=== PATIENT | female | born 1995 | race Caucasian/White ===

== ENCOUNTER 2024-03-03 09:42 | Outpatient (CLI) | payer BC, SELFPAY ==
[2024-03-03 10:10] LABS: Basophils % 0.2 % (0.1-2.0); Eosinophils # 0.1 K/mm3 (0.0-0.4); Eosinophils % 1.7 % (0.1-12.0); Hematocrit 35.6 % (37.0-47.0); Lymphocytes # 1.2 K/mm3 (0.7-4.5); Mean Corpuscular HGB Conc 33.7 g/dL (31.8-35.4); Mean Corpuscular Hemoglobin 29.2 pg (27.0-31.2); Mean Corpuscular Volume 86.6 fl (81-99); Mean Platelet Volume 10.2 fl (7.4-10.4); Monocytes # 0.3 K/mm3 (0.1-1.0); Monocytes % 4.5 % (1.7-9.3); Neutrophils # 4.8 K/mm3 (1.8-7.8); Neutrophils % 74.3 % (37.0-80.0); Platelet Count 205 K/mm3 (142-424); Red Blood Count 4.11 M/mm3 (4.20-5.40); Red Cell Distribution Width 11.9 % (11.5-17.5); White Blood Count 6.5 K/mm3 (4.8-10.8)
[2024-03-03 11:16] LABS: HIV Combo NEGATIVE (Negative)
[2024-03-03 14:43] LABS: RPR W/RFX Titers Nonreactive (Nonreactive)
[2024-03-04 06:10] LABS: HCV Ab Non Reactive (Non Reactive); Hepatitis B Surface Antigen Negative (Negative)
== END 2024-03-03 23:59 | disposition home or self-care (01) ==
LOC: LAB 09:42
PROVIDERS: Visit Provider Obstetrics & Gynecology
DX: Z34.91 Encounter for supervision of normal pregnancy, unspecified, first trimester (principal); Z3A.11 11 weeks gestation of pregnancy
CPT/HCPCS: 36415; 85025; 86592; 86762; 86803; 86850; 87340; 87389

== ENCOUNTER 2024-04-28 09:29 | Outpatient (CLI) | payer BC, SELFPAY ==
--- NOTE | 2024-04-28 09:30 | US_ITS ---
PROCEDURE: US OB /MATERNAL DETAIL CLINICAL INDICATION: 20 week Anatomy Scan-US OB Complete COMPARISON: No exams were available for comparison FINDINGS: Transabdominal sonographic images of the pelvis were obtained. From her established due date she is 19 weeks 2 days. Single viable intrauterine gestation. Cephalic position. Placenta: Right laterally wrappedplacenta grade 1. There is an average amount of fluid. The cervix appears satisfactory. Closed and measuring 3.21 cm in length. Complete survey performed and was unremarkable on the submitted images as in PACS. No discrete anomalies identified on survey imaging by technologist. Active fetus. Three-vessel cord with satisfactory umbilical cord insertion. 4- chamber heart noted. Situs, aortic arch, LVOT, RVOT, three-vessel view appear normal. There is a 2.3 mm intracardiac echogenic foci in the left ventricle. Survey of brain & ventricles Unremarkable. Cerebellum, thalamus, choroid plexus, cisterna magna appear normal. Face and neck survey unremarkable. Profile, nasion, lips and nose appeared normal. Diaphragm and chest views unremarkable. Abdomen: Both kidneys noted and unremarkable. Stomach and bladder noted and satisfactory. Spine: Survey of the spine satisfactory with no anomalies identified nor imaged. Cervical, thoracic, lower spine appear normal. Both arms and legs noted. Amniotic Fluid: Adequate. MVP 4.95 cm Measurements: Average ultrasound age 20weeks 4days. Estimated due date by ultrasound age 0709/11/2024. Estimated weight 348g BPD = 20weeks 6days HC = 20weeks 2days AC = 20weeks 6days FL = 20weeks 0 days Growth Percentile= 94 Heart Rate = 140bpm Cerebellum = 19weeks 4days Humerus = 20weeks 2days HC/AC is 1.14 FL/BPD is 0.65 FL/AC is 0.2 IMPRESSION: 1. Viable fetus in the cephalic presentation with a right laterally wrapped placenta grade 1. 2. The fluid is within normal limits with an MVP 4.95 cm. 3. There is an intracardiac echogenic foci within the left ventricle measuring 2.3 mm. Suggest follow-up at 28 weeks. 4. The rest of the anatomic scan appears normal. 5. The fetus measures approximately 1 week ahead on all biometry. Dictated by: Kevin Martinez MD 04/29/2024 08:40 Kevin Martinez MD in [facility] 04/29/2024 08:40
== END 2024-04-28 23:59 | disposition home or self-care (01) ==
LOC: RAD 09:30
PROVIDERS: PCP Obstetrics & Gynecology; Visit Provider Obstetrics & Gynecology
DX: Z36.3 Encounter for antenatal screening for malformations (principal); Z3A.19 19 weeks gestation of pregnancy
CPT/HCPCS: 76811

== ENCOUNTER 2024-06-28 09:22 | Outpatient (CLI) | payer BC, SELFPAY ==
--- NOTE | 2024-06-28 09:30 | US_ITS ---
PROCEDURE: US OB FOLLOW UP CLINICAL INDICATION: f/u Growth at 28 wks for IEF -left ventricle COMPARISON: US US OB /MATERNAL DETAIL from 04/28/2024 FINDINGS: Transabdominal sonographic images of the pelvis were obtained. The following parameters are obtained: From her established due date she is 28weeks 3days Viable fetus in the cephalic presentation with a right lateral placenta grade 2. The cervix measures 3.46 cm Estimated weight 1404 grams, 3 lb 2 oz AUA 30 weeks 0 days, heart rate: 147bpm bpm. BPD: 30weeks 5days, 94 percentile HC: 30weeks 1day, 70 percentile AC: 29weeks 4days, 74 percentile FL: 29weeks 2days, 57 percentile HC/AC: 1.09 FL/BPD: 0.72 FL/AC: 0.22 Growth percentile: 78th percentile Amniotic fluid index: 10.48cm, MVP 3.48 cm No obvious anomalies evident. profile seen, stomach, bladder, kidneys, three-vessel cord, four chamber heart appear normal. There continues to be a small left ventricular intracardiac echogenic foci. IMPRESSION: 1. Viable fetus in the cephalic presentation with a right lateral placenta grade 2. 2. The fluid is within normal limits with an amniotic fluid index 10.48 cm, MVP 3.48 cm. 3. There has been good interval growth with the fetus currently 78th percentile. 4. There continues to be a small left ventricular intracardiac echogenic foci. It does not appear to have increased in size. Suggest repeat scan at 36 weeks. 5. The rest of the limited anatomical scan appears normal. Dictated by: Kevin Martinez MD 06/28/2024 10:13 Kevin Martinez MD in [facility] 06/28/2024 10:13
== END 2024-06-28 23:59 | disposition home or self-care (01) ==
LOC: RAD 09:23
PROVIDERS: PCP Obstetrics & Gynecology; Visit Provider Obstetrics & Gynecology
DX: Z3A.28 28 weeks gestation of pregnancy (principal); Z36.2 Encounter for other antenatal screening follow-up; O28.3 Abnormal ultrasonic finding on antenatal screening of mother
CPT/HCPCS: 76816

== ENCOUNTER 2024-06-29 16:49 | Outpatient (CLI) | payer BC, SELFPAY ==
[2024-06-29 18:22] LABS: Basophils % 0.2 % (0.1-2.0); Eosinophils # 0.1 Kmm3 (0.0-0.4); Eosinophils % 1.1 % (0.1-12.0); Lymphocytes # 1.6 K/mm3 (0.7-4.5); Lymphocytes % 19.3 % (10-50); Mean Corpuscular HGB Conc 33.3 g/dL (31.8-35.4); Mean Corpuscular Hemoglobin 30.2 pg (27.0-31.2); Mean Corpuscular Volume 90.6 fl (81-99); Mean Platelet Volume 11.1 fl (7.4-10.4); Monocytes # 0.6 K/mm3 (0.1-1.0); Monocytes % 7.1 % (1.7-9.3); Neutrophils # 5.8 K/mm3 (1.8-7.8); Neutrophils % 71.4 % (37.0-80.0); Nucleated Red Blood Cells # 0 10^3/uL; Nucleated Red Blood Cells % 0 %; Platelet Count 200 K/mm3 (142-424); Red Blood Count 3.31 M/mm3 (4.20-5.40); Red Cell Distribution Width 12.2 % (11.5-17.5); Red Cell Distribution Width-SD 39.8 fL; White Blood Count 8.1 K/mm3 (4.8-10.8)
[2024-06-29 18:35] LABS: Glucose 1 Hour 116 mg/dL (74-100)
[2024-06-30 06:52] LABS: RPR W/RFX Titers Nonreactive (Nonreactive)
== END 2024-06-29 23:59 | disposition home or self-care (01) ==
LOC: LAB 16:50
PROVIDERS: Visit Provider Obstetrics & Gynecology
DX: Z34.82 Encounter for supervision of other normal pregnancy, second trimester (principal); Z3A.28 28 weeks gestation of pregnancy
CPT/HCPCS: 36415; 82947; 85025; 86592

== ENCOUNTER 2024-08-08 10:08 | Outpatient (CLI) | payer BC, SELFPAY ==
--- NOTE | 2024-08-08 10:15 | US_ITS ---
PROCEDURE: US OB BIOPHYSICAL PROFILE CLINICAL INDICATION: LGA COMPARISON: US US OB /MATERNAL DETAIL from 04/28/2024 US US OB FOLLOW UP from 06/28/2024 FINDINGS: Transabdominal sonographic images of the uterus were obtained. From her established due date she is 34weeks 2days. The following parameters are obtained: Viable Fetus in the cephalic presentation with a right lateral placenta grade 2. Average ultrasound age is 35weeks 1day Estimated weight 2,409g, 5 lb 5 oz The cervix measures 3.0 cm in length Measurements: heart Rate = 138bpm BPD = 36weeks 0 days, 89 percentile HC = 36weeks 3days ,66 percentile AC = 33weeks 6days, 41 percentile FL = 34weeks 1day, 35 percentile HC/AC is 1.08 FL/BPD is 0.75 FL/AC is 0.22 46 percentile Amniotic fluid index: 11.73cm, MVP 3.71 cm Qualitative AFV:2 Breathing movements: 2 Gross Body Movements: 2 Tone: 2 Biophysical profile score: 8 No obvious anomalies evident.Kidneys, profile, stomach, bladder, four-chamber heart, three-vessel cord appear normal. There is mild unilateral renal pelvis dilation measuring 4.2 mm. Less than 7 mm considered normal at this gestational age. IMPRESSION: 1. Viable fetus in the cephalic presentation with a right lateral placenta grade 2. 2. The fluid is within normal limits with an amniotic fluid index 11.73 cm, MVP 3.71 cm. 3. Biophysical profile is 8/8 with good breathing movement and movement seen. 4. There has been good interval growth with the fetus currently 46 percentile. 5. Limited anatomical scan appears normal. Incidental mild unilateral renal pelvis dilation. Dictated by: Kevin Martinez MD 08/08/2024 13:37 Kevin Martinez MD in [facility] 08/08/2024 13:37
== END 2024-08-08 23:59 | disposition home or self-care (01) ==
LOC: RAD 10:09
PROVIDERS: PCP Obstetrics & Gynecology; Visit Provider Obstetrics & Gynecology
DX: O36.63X0 Maternal care for excessive fetal growth, third trimester, not applicable or unspecified (principal); Z3A.34 34 weeks gestation of pregnancy
CPT/HCPCS: 76816; 76819

== ENCOUNTER 2024-08-22 10:06 | Outpatient (CLI) | payer BC, SELFPAY ==
[2024-08-22 10:32] LABS: Basophils % 0.3 % (0.1-2.0); Eosinophils # 0.1 Kmm3 (0.0-0.4); Eosinophils % 1.1 % (0.1-12.0); Hematocrit 31.6 % (37.0-47.0); Hemoglobin 9.9 g/dL (12.2-16.2); Immature Granulocytes # 0.06 10^3uL; Immature Granulocytes % 0.9 %; Lymphocytes # 1.1 K/mm3 (0.7-4.5); Lymphocytes % 16.7 % (10-50); Mean Corpuscular HGB Conc 31.3 g/dL (31.8-35.4); Mean Corpuscular Hemoglobin 28.2 pg (27.0-31.2); Mean Platelet Volume 11.3 fl (7.4-10.4); Monocytes # 0.5 K/mm3 (0.1-1.0); Monocytes % 7.6 % (1.7-9.3); Neutrophils # 4.8 K/mm3 (1.8-7.8); Neutrophils % 73.4 % (37.0-80.0); Nucleated Red Blood Cells # 0 10^3/uL; Nucleated Red Blood Cells % 0 %; Platelet Count 152 K/mm3 (142-424); Red Blood Count 3.51 M/mm3 (4.20-5.40); Red Cell Distribution Width 13.1 % (11.5-17.5); White Blood Count 6.6 K/mm3 (4.8-10.8)
[2024-08-22 11:50] LABS: Ferritin 6.15 ng/ml (6.24-137)
[2024-08-22 13:22] LABS: Vitamin B12 233 pg/mL (239-931)
== END 2024-08-22 23:59 | disposition home or self-care (01) ==
PROVIDERS: PCP Internal Medicine; Visit Provider Obstetrics & Gynecology
DX: D64.9 Anemia, unspecified (principal); Z34.03 Encounter for supervision of normal first pregnancy, third trimester; Z3A.00 Weeks of gestation of pregnancy not specified
CPT/HCPCS: 36415; 82607; 82728; 82746; 85025; 86403

== ENCOUNTER 2024-09-09 13:05 | Inpatient (IN) | payer BC, SELFPAY ==
[2024-09-09 13:12] VITALS: BMI 26.8
[2024-09-09 14:08] LABS: Hematocrit 33.1 % (37.0-47.0); Hemoglobin 10.8 g/dL (12.2-16.2); Immature Granulocytes % 0.6 %; Mean Corpuscular HGB Conc 32.6 g/dL (31.8-35.4); Mean Corpuscular Hemoglobin 28.7 pg (27.0-31.2); Mean Corpuscular Volume 88.0 fl (81-99); Nucleated Red Blood Cells % 0 %; Platelet Count 163 K/mm3 (142-424); Red Blood Count 3.76 M/mm3 (4.20-5.40); Red Cell Distribution Width-SD 43.3 fL; White Blood Count 7.1 K/mm3 (4.8-10.8)
[2024-09-09] MEDS: ALUMINUM/MAGNESIUM/SIMETHICONE 30ML UDC 30 ML PO ×2 (14:15→20:43)
[2024-09-09 14:24] VITALS: BP 121/72; PULSE 94; RESP 18; TEMP 37.2; O2SAT 96; BMI 26.8
--- NOTE | 2024-09-09 15:08 | EXP.HP ---
History of Present Illness *Admission Date: 09/09/24 *Reason for visit:: induction *History of present illness: Dian Cates is a pleasant 29-year-old G1, P0 who presented today for induction of labor. She has an SANGEETHA of 09/17/2024 giving her a gestational age of 38 weeks and 6 days today. These based on 7-week ultrasound. Following cervical exam she had spontaneous rupture of membranes. The plan was to place a [place] balloon but the patient was already contract with SROM decision was made to monitor her. She endorsed good movement and states that she is feeling contractions every 2 to 3 minutes. has been uncomplicated. 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 O+, antibody negative, rubella immune, hepatitis B negative, hepatitis C negative, RPR negative, HIV negative 1 hour GTT: 116 GBS negative PFSH PFS Disclaimer: The information contained in this section may have been updated after the patient was seen, as this information can be updated by other users. Medical History Encounter for supervision of other normal , third trimester No significant past medical history Surgical History No significant past surgical history Family History Other No significant family history Social History Smoking Status: Never smoker alcohol intake: former current occupational status: employed Travel in the last 8 weeks?: None Have you lived/traveled outside US in past 30 days?: No Contact w/someone who lives/traveled outside US past 30 days?: No Exposure to someone with infectious disease in past 14 days?: No Do you have a fever (greater than 100.4 F or 38 C)?: No Have you tested positive for COVID-19?: No Exposed to someone with COVID-19 in past 14 days?: No Do you have a sore throat?: No Do you have a cough?: No Do you have any weakness?: No Do you have any diarrhea?: No Are you experiencing any unusual bleeding?: No Do you have any muscle aches/pain?: No Do you have any abdominal pain?: No Are you experiencing loss of taste or smell?: No Other Medical History Have you received the Flu Vaccine for this season: No Have you received the Pneumonia Vaccine: No Review of Systems Review of Systems Review of systems (narrative): Review of Systems Constitutional: Denies fever, chills, and sweats Eyes: Denies vision change/ pain Respiratory: Denies cough and shortness of breath Cardiovascular: Denies chest pain and lightheadedness Gastrointestinal: Admits abdominal pain with contractions. Denies nausea, vomiting. Genitourinary: Denies dysuria and incontinence Musculoskeletal: Denies shoulder pain and back pain Neurological: Denies change in speech or headaches Meds Home Medications and Allergies Home Medications ?Medication ?Instructions ?Recorded ?Confirmed ?Type vit no.95-ferrous 1 tab PO DAILY 08/22/24 09/09/24 History fumarate 28 mg-folic acid 800 mcg tablet () iron sucrose 200 mg iron/10 mL 200 mg (10 mL) IV WEEKLY 13 doses 08/30/24 09/09/24 Rx intravenous solution (Venofer) #30 mL New Prescriptions to Start Prescriptions: Allergies Allergy/AdvReac Type Severity Reaction Status Date / Time Sulfa (Sulfonamide Allergy Mild Rash Verified 09/05/24 08:20 Antibiotics) Exam Data for Last 24 hours Vital signs and Labs for Last 24 Hours: Temp Pulse Resp BP Pulse Ox O2 Del Method 98.9 F 94 H 18 121/72 96 Room Air 09/09/24 14:24 09/09/24 14:24 09/09/24 14:24 09/09/24 14:24 09/09/24 14:24 09/09/24 14:24 Laboratory Results - last 24 hr 09/09/24 14:00: WBC 7.1, RBC 3.76 L, Hgb 10.8 L, Hct 33.1 L, MCV 88.0, MCH 28.7, MCHC 32.6, RDW 13.7, Plt Count 163, MPV 12.5 H, Neut % (Auto) 75.9, Lymph % (Auto) 16.3, [place] % (Auto) 6.3, Eos % (Auto) 0.6, Baso % (Auto) 0.3, Neut # (Auto) 5.4, Lymph # (Auto) 1.2, [place] # (Auto) 0.5, Eos # (Auto) 0.0, Baso # (Auto) 0.0, Blood Type O Positive I & O for Last 24 hours: Intake & Output 09/06/24 09/07/24 09/08/24 09/09/24 23:59 23:59 23:59 23:59 Weight 166 lb Narrative: General: patient is alert oriented in no acute distress and responds appropriately to questions. HEENT: NCAT, EOMI, moist mucous membranes, neck supple with full ROM Cardiovascular: RRR +S1/S2, no murmurs or rubs Pulmonary: Clear to auscultation bilaterally, nonlabored breathing, symmetric chest rise Abdominal: Gravid abdomen appropriate for gestation. No guarding, rebound, or tenderness noted. Extremities: trace edema, no tenderness or cyanosis noted Skin: Normal turgor, intact, warm. Negative for erythema, pallor, petechia, or lesions Neurologic: Negative for sensory or motor deficit Psychiatric: Normal affect, normal thought process, good judgment and insight, no depression or anxious mood appreciated. *Routine HEENT Exam Head: Present normocephalic and atraumatic Eye: Present EOMI, PERRL and normal accommodation; Absent conjunctival icterus, scleral injection, nystagmus or exophthalmos ENT: Present mucous membranes moist *Routine Respiratory Exam Respiratory: Present CTA bilaterally, normal respiratory effort, able to speak in complete sentences and symmetric chest movement; Absent accessory muscle use, decreased breath sounds, rales, respiratory distress, wheezes, distant breath sounds or diminished air movement *Routine Cardiovascular Exam Cardiovascular: Present RRR, Normal S1 and Normal S2; Absent murmur or gallop *Routine Abdominal Exam Abdominal: Present soft and normoactive bowel sounds; Absent tenderness, distended, rebound or guarding *Routine Rectal Exam Rectal:: deferred *Routine Genitalia Exam Genitalia:: normal female Assessment and Plan *Assessment and plan (1) Encounter for supervision of other normal , third trimester: Status: Acute Category: Medical Code(s): Z34.83 - Encounter for supervision of other normal , third trimester (2) SROM (spontaneous rupture of membranes): Status: Acute Category: Medical Plan - Monitor vitals - Admit to L&D for labor monitoring and delivery - External FHR and TOCO monitor - Exam on admission: /-2 - GBS neg/ Blood type: O+ - Hemoglobin: 10.8, Plt: 163 - Anticipate vaginal delivery of male infant We will monitor for 2+ hours to see if she makes cervical change on her own. She is interested in attempting nipple stimulation for alternatives to induction.
[2024-09-09] MEDS: BUTORPHANOL TARTRATE 1 MG/ML VIAL IV (20:39)
[2024-09-09 22:18] LABS: Microscopic, Urine URINE MICROSCOPIC (MICROSCOPIC)
[2024-09-09 22:22] LABS: Bilirubin,Urine Negative (Negative); Color,Urine YELLOW (Yellow); Glucose,Urine (UA) TRACE (Negative); Ketones,Urine Negative (Negative); Leukocyte Esterase,Urine Negative (Negative); PH,Urine 6.5 (5.0-8.5); Protein,Urine TRACE (Negative); Specific Gravity, Urine >= 1.030 (1.005-1.030); Urobilinogen,Urine 0.2 EU/dl (0.2)
[2024-09-09 22:41] LABS: Bacteria,Urine Trace /lpf
[2024-09-09] MEDS: BUTORPHANOL TARTRATE 2 MG/ML VIAL IV (22:51)
[2024-09-10] MEDS: DEXTROSE 5%-LACTATED RINGERS 1,000 ML 125 ML IV (01:00)
--- NOTE | 2024-09-10 01:03 | P.PNANES_ITS ---
[facility] Disclaimer: The information contained in this section may have been updated after the patient was seen, as this information can be updated by other users. Medical History Encounter for supervision of other normal , third trimester No significant past medical history Surgical History No significant past surgical history Family History Other No significant family history Social History Smoking Status: Never smoker alcohol intake: former substance use type: denies use current occupational status: employed Travel in the last 8 weeks?: None [facility] Anesthesia Checklist Patient Identification Patient Identification: Verbal (Name & ) Structural Data Admitted From: Inpatient Planned Operative Procedure/s: labor epidural Consent for Planned Operative Procedure(s) Verified: Yes Airway Assessment Mallampati Score:: Class II C-Spine Mobility Assessed: Yes TMJ Mobility Assessed: Yes Dentition: Good Dentition Neurological Assessment Level of Consciousness: Awake, Alert and Appropriate Anesthesia Plan Anesthesia Risk discussed: Yes Anesthesia Plan: Verified ASA Class: II Anesthesia Type: Epidural
[2024-09-10] MEDS: ONDANSETRON 4MG/2ML VIAL 4 MG IV ×2 (01:26→12:52)
[2024-09-10] MEDS: ALUMINUM/MAGNESIUM/SIMETHICONE 30ML UDC 30 ML PO (02:36)
--- NOTE | 2024-09-10 05:19 | EXP.LABOR.NO ---
Labor Note Subjective: Date: 09/10/24 Time: 05:19 regular contraction Comment:: Reports increased pressure. States the labor shakes are just starting to improve. She feels better but still feeling abdominal pain Objective: NST:: Reactive Contractions:: every 2-3 minutes Cervical Dilation:: 8 Effacement:: 90% Station: 0 Membranes: ruptured Fetus: Monitoring?: Yes monitoring type:: External Assessment: Labor progressing?: Yes Plan: Anesthesia for epidural?: Yes Plan for ?: No Continue to monitor?: Yes Start pushing?: No
[2024-09-10 09:04] LABS: RPR W/RFX Titers Nonreactive (Nonreactive)
[2024-09-10] MEDS: OXYTOCIN/RINGERS LACTATE 30 UNITS/500 ML BAG IV (09:23)
[2024-09-10] MEDS: LACTATED RINGERS 1000ML 1,000 ML 500 ML IV ×2 (09:39)
--- NOTE | 2024-09-10 10:58 | EXP.OP.NOTE ---
Date of procedure: 09/10/24 Pre-op Diagnosis:: 1. 39 weeks 0days gestation, [place] 2. intolerance - Category 2 tracing- Prolonged deceleration 3. Arrest of Descent 4. OP presentation 5. GBS negative 6. Rh Positive Post-op Diagnosis:: 1. 39 weeks 0days gestation, [place] 2. intolerance - Category 2 tracing- Prolonged deceleration 3. Arrest of Descent 4. OP presentation 5. GBS negative 6. Rh Positive Procedure performed:: Primary Delivery Surgeon:: Yamileth Helm DO Distribution Superintendent(s):: Loretta Hilario RN HAZARDOUS MATERIAL SPECIALIST:: Carlitos Ruiz Anesthesia: epidural Estimated blood loss (mL): 600 Clinical Note:: Dian is a 29 yr old who presented yesterday for IOL. Following vaginal exam she had SROM during coates balloon placement, clear fluid. The patient contracted throughout the night. She made progress to 8cm and requested an epidural. Once completed the patient pushed for 1hr 40min, starting around 8am. During pushing her contractions were short and only intense every 10+ minutes. Pitocin was started to augment her labor. She pushed in several positions, without any descent. The infant was previously tachycardiac with some variable decelerations and without accelerations. When transitioning from knee chest to her back the had a decleration to the 60s and remained there for >5minutes. Decision was made to proceed with delivery at this time. Pt and family consented Operative findings:: 1. Live viable male infant: Norman. Weight: 7pounds 14ounces. Apgars 8 and 9 at 1 and 5 minutes respectively 2. Normal-appearing fallopian tubes and ovaries bilaterally 3. Cord pH: 7.35. base excess: -4.7 Operative note:: Medications: Due to the emergent nature of the procedure, antibiotics were not available. The circulating nurse was able to get them started as we were closing. She will receive one dose of Azithromycin and 24 hours of Ancef and Metronidazole. Summary: Procedure explained in its entirety. The patient was counseled on the risks and benefits of section including bleeding, vascular injury, infection, and injury to the surrounding structures. Hemorrhage requiring life saving blood transfusion resulting in blood born viral infection or allergic reaction was explained and the patient consented to blood transfusion. Possible need for further operative measures prolonging recovery time and hospitalization reviewed to include hysterectomy. Procedure explained in its entirety and patient had no further questions. Consented to procedure. The patient was taken back to the operating room where adequate epidural anesthesia was found to be adequate. Pneumatic compression stockings applied to lower extremities. She was placed in the dorsal supine position The patient was prepped and draped in sterile fashion. At 1001 a Pfannenstiel skin incision was made with the scalpel and taken down to the fascia. The fascia was knicked in the midline and bluntly extended laterally. The rectus muscles were in the midline, peritoneum was identified and entered bluntly. Tima O retractor was placed and the bladder was noted to be out of the operative field. The lower uterine segment was easily identified, sharply incised, and entered bluntly with the surgeon's index finger. Incision was then extended in a superior and inferior fashion by blunt separation. Membranes were ruptured revealing clear fluid. The fetus was in cephalic presentation. There was a significant amount of caput and the head was carefully elevated out of the pelvis. A vaginal hand was placed for assistance. Fundal pressure was applied when head was brought into incision. The infants head was delivered without difficulty. The shoulder and body followed without complication. Delivery occurred at 1004. The mouth and nose were suctioned with a bulb. The umbilical cord was clamped and cut. Infant was taken to warmer for evaluation by the resort keeper. Cord gasses were obtained. Cord blood was collected. The placenta was delivered via fundal massage. IV Pitocin was initiated. Inside of the uterus was gently cleared of blood and clots with lap sponge. The hysterotomy was closed with 0 Vicryl in a running locked fashion. The lower uterine segment was visualized and noted to be hemostatic. The bladder serosal edge was noted to be bleeding and reapproximated with 2-0 monocryl. Hemostasis noted. The ovaries and tubes were found to be normal. The posterior aspect of the uterus was cleared of blood clot with a damp lap sponge. The gutters were inspected bilaterally and cleared of blood and clots with lap sponges. The uterine incision was reinspected and hemostasis noted. Tima O retractor was removed. The peritoneum was reapproximated using a 2-0 Monocryl in a nonlocked running fashion. The fascia was closed in a running nonlocked fashion using 0 PDS meeting right of midline. Fascia was noted to have a gap at the midline and this was reinforced with 0-PDS. The subcutaneous fat was closed with 2-0 Monocryl interrupted sutures x3. Skin was closed with the INSORB suture in a subcuticular fashion. Patient tolerated the procedure well and all counts were correct x3, per nursing. Patient will receive tap blocks and then be transported to the OB PACU for recovery and bonding. Condition: stable Disposition: floor Specimens:: 1. Placenta 2. live viable male infant 3. cord blood 4. cord gasses Complications:: None
[2024-09-10 10:59] VITALS: BP 130/58; PULSE 104; RESP 18; TEMP 36.6; O2SAT 98
--- NOTE | 2024-09-10 11:03 | P.PNANES_ITS ---
[facility] Anesthesia Record Part I Anesthesia Record I Intake, IV Amount: 1,500 Hydration: Adequate Estimated blood loss (mL): 600 Urine output (mL): 300 Blood Pressure: 130/58 SaO2: 96 Pulse Rate: 106 Airway Patency: Patent Respiratory Rate: 12 Temperature: 98 F Patient is:: Awake and Stable Stable to PACU at:: 10:56
[2024-09-10 11:05] VITALS: BP 130/58; PULSE 106; RESP 12; TEMP 36.6; O2SAT 96
[2024-09-10] MEDS: OXYTOCIN/RINGERS LACTATE 30 UNITS/500 ML BAG 40 UNITS IV (11:10)
[2024-09-10 11:11] VITALS: BP 128/58; PULSE 101; RESP 18; O2SAT 98
--- NOTE | 2024-09-10 11:14 | SUR.OPER ---
-1001- start of RED . Counts were not able to be completed by incision so xrays will be completed at the end of case. fransisco Amaro pulled and administered Ancef IVPB and Azithormycin 500mg was brought to us by house and was administered by fransisco Hernandez. 1038- Xray was taken to ensure that nothing was left behind in the patient. looked at the Xray and confirmed that she did not see anything left behind. Waiting on final read by radiologist.
--- NOTE | 2024-09-10 11:17 | XR_ITS ---
PROCEDURE INFORMATION: Exam: XR Abdomen Exam date and time: 09/10/2024 10:32 AM Age: 29 years old Clinical indication: Screening exam; Other: Unable to do initial count on surgical instruments TECHNIQUE: Imaging protocol: Radiologic exam of the abdomen. Views: Frontal supine view of the abdomen. 1 View. COMPARISON: No relevant prior studies available. FINDINGS: Tubes, catheters and devices: No evidence of surgical instrument.. Gastrointestinal tract: No dilated bowel Bones/joints: Unremarkable. IMPRESSION: No evidence of surgical instrument..
[2024-09-10 11:20] VITALS: BP 124/56; PULSE 94; RESP 17; O2SAT 99
--- NOTE | 2024-09-10 11:31 | SUR.OPER ---
1004- Cord blood unable to be drawn due to blood clotting. Blood gases were completed and taken by rt Jamie.
[2024-09-10] MEDS: ACETAMINOPHEN 500MG TAB 1000 MG PO ×2 (11:44→17:12)
[2024-09-10] MEDS: KETOROLAC 30MG/ML VIAL 30 MG IV ×3 (11:44→23:56)
[2024-09-10] MEDS: OXYCODONE 5MG IMMEDIATE RELEASE TABLET 5 MG PO ×2 (12:52→22:18)
[2024-09-10] MEDS: METRONIDAZ/SOD CHL 500 MG/100 ML PIGGYBACK 100 MG IV ×2 (12:54→21:04)
[2024-09-10] MEDS: LACTOBACILLUS PROBIOTIC COMB CAPSULE 1 CAP PO (21:04)
[2024-09-10] MEDS: SENNA 8.6MG TABLET 8.6 MG PO (21:04)
[2024-09-11] MEDS: OXYCODONE 5MG IMMEDIATE RELEASE TABLET 5 MG PO ×2 (03:14→15:57)
[2024-09-11] MEDS: ACETAMINOPHEN 500MG TAB 1000 MG PO ×3 (03:14→17:47)
[2024-09-11] MEDS: METRONIDAZ/SOD CHL 500 MG/100 ML PIGGYBACK 100 MG IV ×2 (05:27→11:36)
[2024-09-11] MEDS: KETOROLAC 30MG/ML VIAL 30 MG IV (05:28)
[2024-09-11 07:35] LABS: Hematocrit 27.5 % (37.0-47.0); Hemoglobin 8.6 g/dL (12.2-16.2); Immature Granulocytes % 0.6 %; Mean Corpuscular HGB Conc 31.3 g/dL (31.8-35.4); Mean Corpuscular Hemoglobin 28.2 pg (27.0-31.2); Mean Corpuscular Volume 90.2 fl (81-99); Nucleated Red Blood Cells % 0 %; Platelet Count 117 K/mm3 (142-424); Red Blood Count 3.05 M/mm3 (4.20-5.40); Red Cell Distribution Width-SD 46.7 fL; White Blood Count 10.6 K/mm3 (4.8-10.8)
[2024-09-11] MEDS: SENNA 8.6MG TABLET 8.6 MG PO (09:17)
[2024-09-11] MEDS: LACTOBACILLUS PROBIOTIC COMB CAPSULE 1 CAP PO (09:17)
--- NOTE | 2024-09-11 09:53 | EXP.ACUTE.PN ---
Subjective *Date: 09/11/24 *Time: 09:53 Interval history: POD # 1 s/p PLTCS Feeling well. Pain controlled. Breast feeding. Lochia is appropriate. Voiding without difficulty and passing flatus. Tolerating regular diet. Denies fever/chills, chest pain and shortness of breath. No headaches, vision changes, lightheadedness/dizziness. No lower extremity swelling. Ambulating well ad indu. Medical Exam Vital signs and Labs for Last 24 Hours: Vital Signs Temp Pulse Pulse Resp BP BP Pulse Ox 09/10/24 11:20 94 H 17 124/56 L 99 09/10/24 11:11 101 H 18 128/58 L 98 09/10/24 11:05 98 F 106 H 12 130/58 L 09/10/24 10:59 97.9 F 104 H 18 130/58 L 98 O2 Del Method 09/10/24 11:20 Room Air 09/10/24 11:11 Room Air 09/10/24 11:05 09/10/24 10:59 Room Air Laboratory Results - last 24 hr 09/09/24 14:00: Blood Type O Positive, Antibody Screen Negative, Crossmatch (AHG) See Detail 09/10/24 10:11: Cord ABG pH 7.35 09/11/24 07:15: WBC 10.6 D, RBC 3.05 L, Hgb 8.6 L, Hct 27.5 L, MCV 90.2, MCH 28.2, MCHC 31.3 L, RDW 14.6, Plt Count 117 L D, MPV 11.9 H, Neut % (Auto) 82.3 H, Lymph % (Auto) 11.6, [place] % (Auto) 4.6, Eos % (Auto) 0.6, Baso % (Auto) 0.3, Neut # (Auto) 8.7 H, Lymph # (Auto) 1.2, [place] # (Auto) 0.5, Eos # (Auto) 0.1, Baso # (Auto) 0.0 I & O for Labs for Last 24 Hours: Intake & Output 09/08/24 09/09/24 09/10/24 09/11/24 23:59 23:59 23:59 23:59 Intake Total 1500 / 1500 Balance 1500 / 1500 Weight 166 lb Head: Present atraumatic and normocephalic ENT: Present normal exam and mucous membranes moist Neck: Present normal inspection and full ROM Respiratory: Present CTA bilaterally and normal respiratory effort Cardiac: Present Reg Rate and Rhythm GI: Present soft and normal bowel sounds; Absent distention or tenderness Comments:: Pfannenstiel incision clean/dry/intact with steri strips in place, Uterine fundus firm and below umbilicus Rectal (female): Present deferred (female): Present deferred Extremities: Present normal inspection and full ROM; Absent edema or calf tenderness Neuro: Present alert, awake and moves all extremities Assessment and Plan *Assessment and plan (1) S/P section: Status: Acute Category: Surgical Code(s): Z98.891 - History of uterine scar from previous surgery (2) Non-reassuring heart tones complicating , antepartum: Status: Acute Category: Medical Code(s): O36.8390 - Maternal care for abnormalities of the heart rate or rhythm, unspecified trimester, not applicable or unspecified (3) Encounter for elective induction of labor: Status: Acute Category: Medical Code(s): Z34.90 - Encounter for supervision of normal , unspecified, unspecified trimester (4) Acute blood loss anemia: Status: Acute Category: Medical Code(s): D62 - Acute posthemorrhagic anemia Plan Continue routine care Encouraged increased ambulation AM Hgb 8.6 - Venofer 200 mg IV x 1 dose ordered Plan d/c home tomorrow, POD # 2
[2024-09-11] MEDS: IRON SUCROSE COMPLEX 200 MG in 0.9 % SODIUM CHLORIDE 100 ML 220 MG IV (11:08)
[2024-09-11] MEDS: IBUPROFEN 400 MG TABLET 800 MG PO (17:47)
[2024-09-11] MEDS: PRENATAL MULTIVITAMIN W/IRON 1 EACH PO (17:47)
[2024-09-12] MEDS: SENNA 8.6MG TABLET 8.6 MG PO (00:28)
[2024-09-12] MEDS: OXYCODONE 5MG IMMEDIATE RELEASE TABLET 5 MG PO (00:28)
[2024-09-12] MEDS: ACETAMINOPHEN 500MG TAB 1000 MG PO (06:37)
[2024-09-12] MEDS: IBUPROFEN 400 MG TABLET 800 MG PO (06:37)
[2024-09-12 08:05] VITALS: BP 110/61; PULSE 73; RESP 17; TEMP 36.8; O2SAT 98
--- NOTE | 2024-09-12 10:09 | P.DS_ITS ---
General Admission date:: 09/09/24 Discharge date: 09/12/24 HPI HPI HPI: Dian Cates is a pleasant 29-year-old G1, P0 who presented today for induction of labor. She has an SANGEETHA of 09/17/2024 giving her a gestational age of 38 weeks and 6 days today. These based on 7-week ultrasound. Following cervical exam she had spontaneous rupture of membranes. The plan was to place a [place] balloon but the patient was already contract with [facility] decision was made to monitor her. She endorsed good movement and states that she is feeling contractions every 2 to 3 minutes. has been uncomplicated. 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 O+, antibody negative, rubella immune, hepatitis B negative, hepatitis C negative, RPR negative, HIV negative 1 hour GTT: 116 GBS negative Hospital Course Hospital Course Hospital Course: Dian Cates is a 29yo G1, P1 postoperative day #2 from a primary low- transverse delivery secondary to intolerance of labor and arrest of descent. She is doing very well. She delivered a live viable male infant weighing 7 pounds 14 ounces with Apgars of 8 and 9 and appropriate cord gases. She is breast-feeding without any difficulties. She has done well and has remained afebrile with her at her [facility]. She is eating and drinking and ambulating. Her lochia is normal. She has O Rh+ blood, she is rubella immune and was group B streptococcus negative. She will be discharged home to follow-up with Dr. Helm in 2 weeks time. She will continue with her vitamins and iron. She has a prescription for Percocet and will continue these at home. She will take ibuprofen as well. She was given the usual instructions with respect to limiting her activity, driving and sexual activity. She was given instructions with respect to wound care. Her condition on discharge is stable and improved. Exam Data for Last 24 hours Vital signs and Labs for Last 24 Hours: Temp Pulse Resp BP Pulse Ox O2 Del Method 98 F 94 H 17 124/56 L 99 Room Air 09/10/24 11:05 09/10/24 11:20 09/10/24 11:20 09/10/24 11:20 09/10/24 11:20 09/10/24 11:20 I & O for Last 24 hours: Intake & Output 09/09/24 09/10/24 09/11/24 09/12/24 23:59 23:59 23:59 23:59 Intake Total 1500 / 1500 Balance 1500 / 1500 Weight 166 lb Narrative: General: patient is alert oriented in no acute distress and responds appropriately to questions. Appears to be in minimal pain. HEENT: NCAT, EOMI, moist mucous membranes, neck supple with full ROM Cardiovascular: RRR +S1/S2, no murmurs or rubs Pulmonary: Clear to auscultation bilaterally, nonlabored breathing, symmetric chest rise Abdominal: Fundus below the umbilicus, firm, and tenderness appropriate for the period. Extremities: trace edema, no tenderness or cyanosis noted Skin: Normal turgor, intact, warm. Negative for erythema, pallor, petechia, or lesions. Incision intact and healing well. steri strips in place Neurologic: Negative for sensory or motor deficit Psychiatric: Normal affect, normal thought process, good judgment and insight, no depression or anxious mood appreciated. DS: Diagnosis Discharge Diagnosis (1) S/P section: Status: Acute Code(s): Z98.891 - History of uterine scar from previous surgery (2) Non-reassuring heart tones complicating , antepartum: Status: Acute Code(s): O36.8390 - Maternal care for abnormalities of the heart rate or rhythm, unspecified trimester, not applicable or unspecified (3) Encounter for elective induction of labor: Status: Acute Code(s): Z34.90 - Encounter for supervision of normal , unspecified, unspecified trimester (4) Acute blood loss anemia: Status: Acute Code(s): D62 - Acute posthemorrhagic anemia Meds Home Medications and Allergies Home Medications ?Medication ?Instructions ?Recorded ?Confirmed ?Type vit no.95-ferrous 1 tab PO DAILY 08/22/2402/22 History fumarate 28 mg-folic acid 800 mcg tablet () acetaminophen 500 mg tablet 500 mg PO Q6H PRN fever or pain 09/12/24 Rx #30 tabs cephalexin 500 mg capsule 500 mg PO BID #4 caps Rx ibuprofen 800 mg tablet 800 mg PO Q8H PRN pain #60 t abs 09/12/24 Rx metronidazole 500 mg tablet 500 mg PO BID #10 tabs Rx oxycodone 5 mg tablet 5 mg PO Q8H PRN pain #20 tab s 09/12/24 Rx sennosides 8.6 mg tablet (Senna 8.6 mg PO BIDP PRN Con stipation 09/12/24 Rx Lax) #60 tabs simethicone 125 mg tablet 125 mg PO DAILY PRN abdomina l 09/12/24 Rx distention #60 tabs New Prescriptions to Start Prescriptions: acetaminophen Yamileth Helm cephalexin Volodymyr,Yamileth ibuprofen Volodymyr,Yamileth metronidazole Volodymyr,Yamileth oxycodone Volodymyr,Yamileth sennosides [Senna Lax] Volodymyr,Yamileth simethicone Yamileth Helm Allergies Allergy/AdvReac Type Severity Reaction Status Date / Time Sulfa (Sulfonamide Allergy Mild Rash Verified 09/05/24 08:20 Antibiotics) Discharge Plan Disposition Patient Disposition: Home, Self-Care Discharge Order Discharge Orders: Discharge Order (Routine); Ordered 09/12/24 Ordered By: Yamileth Helm Follow up Plan Follow up with: Yamileth Helm DO [Staff Physician, [employer]] - 09/27/24 1:15 pm Prescriptions/Medication Reconciliation: New cephalexin 500 mg capsule 500 mg PO BID Qty: 4 0RF Rx Instructions: Please take twice daily for 2 days sennosides [Senna Lax] 8.6 mg Tablet 8.6 mg PO BIDP PRN (Reason: Constipation) Qty: 60 2RF ibuprofen 800 mg tablet 800 mg PO Q8H PRN (Reason: pain) Qty: 60 2RF metronidazole 500 mg tablet 500 mg PO BID Qty: 10 0RF Rx Instructions: please take twice daily for 5 days. acetaminophen 500 mg tablet 500 mg PO Q6H PRN (Reason: fever or pain) Qty: 30 3RF simethicone 125 mg tablet 125 mg PO DAILY PRN (Reason: abdominal distention) Qty: 60 2RF oxycodone 5 mg tablet 5 mg PO Q8H PRN (Reason: pain) Qty: 20 0RF Continued PNV no.95-ferrous fumarate-FA [] 28 mg iron- 800 mcg tablet 1 tab PO DAILY Patient Comments: TAKE 1 TABLET BY MOUTH ONCE DAILY Discontinued Venofer 200 mg iron/10 mL solution 200 mg IV WEEKLY Qty: 30 0RF Problem Reconciliation Problems Reviewed?: Yes Patient Discharge Instructions ACTIVITY: Continue current activity DIET: regular diet Additional Instructions: Congratulations on the delivery of your sweet baby boy. It is my privilege to be your doctor and I am so thankful I could be a part of your special day. Discharge: 1. Take 800 mg Ibuprofen every 8 hours as needed for pain. You can also take 500-1000mg of Tylenol in between doses, every 6-8 hours. Use prescription pain medicine for pain you feel in between 8 hour interval. -No driving while taking narcotic pain medications. In order to drive you should be able to slam on the brakes without significant abdominal pain. 2. Wean from prescription pain medicine first. Do not drive while taking it. 3. Prescription pain medicine can make you constipated. Colace can be taken 1-2 times per day as you need. Make sure to drink at least 8 cups of water per day. 4. Iron supplements can make you constipated. Colace can be taken 1-2 times per day as you need. You can take iron tablets every other day if constipation is too bad. 5. Nothing in the vagina for 6 weeks - no intercourse, douching, tampons. No tub baths or swimming pools 6. Do not lift greater than 15 pounds for 6 weeks, this is the equivalent of 2 gallons of milk. 7. Reasons to return to L&D or call On-Call doctor - fever (greater than 100.4) - heavy vaginal bleeding (soaking through 1 pad in less than 2 hours or passing clots that are egg sized) - vaginal discharge (malodorous and/or purulent) - bleeding or discharge from her incision - severe headaches, leg tenderness/edema, or any other symptoms that warrant immediate medical attention. 8. depression/blues - Normal to feel anxious/overwhelmed for first 2 weeks - Talk to your doctor if: anxiety lasts over 2 weeks, trouble bonding with baby, withdrawing from other family members, thoughts of harming yourself or others Yamileth Helm DO [facility] [phone] *Nothing in the Vagina for 6 weeks* *No strenuous activity* *No heavy lifting* *No tub baths until okay's by * Print Language: Upper Sorbian Providers Primary Care Provider: Jose Helm Provider: Yamileth Helm Attending Provider: Yamileth Helm
--- NOTE | 2024-09-12 15:26 | EXP.ANES.II ---
[facility] Anesthesia Record Part II Anesthesia Record Part II Discharge Time: 11:20 Destination: Obstetric PACU nurse assessment reviewed?: Yes Patient Condition:: Good Anesthesia Complications:: None Swallowing reflex intact?: Yes Airway Patency: Patent Cyanosis?: No Blood Pressure: 124/56 SaO2: 99 Respiratory Rate: 17 Pulse Rate: 94 Temperature: 97.9 F Mental Status: Alert & Oriented Pain level:: 3 Nausea and/or vomitting:: None Intake, IV Amount: 0 Hydration: Adequate
[2024-09-12 15:27] VITALS: BP 124/56; PULSE 94; RESP 17; TEMP 36.6; O2SAT 99
== END 2024-09-12 12:39 | disposition home or self-care (01) | DRG 788 ==
PROVIDERS: Admitting Provider Obstetrics & Gynecology; PCP Internal Medicine; Visit Provider Obstetrics & Gynecology
PROC: 10D00Z1 Extraction of Products of Conception, Low, Open Approach (ICD-10-PCS; CPT 59514; principal; 2024-09-10 09:50)
DX: O76 Abnormality in fetal heart rate and rhythm complicating labor and delivery (principal); Z3A.38 38 weeks gestation of pregnancy; Z37.0 Single live birth; O62.1 Secondary uterine inertia; O90.81 Anemia of the puerperium
CPT/HCPCS: 36415; 51702; 59025; 74018; 81001; 82800; 85025; 86592; 86850; 94761; J0595; J1756; J1836; J1885; J2003; J2405; J2590; J2795; J3010; J7120; J7121